=== PATIENT | female | born 1955 | race Two or more races ===

== ENCOUNTER 2017-09-05 06:41 | Day surgery (SDC) | payer OTHER ==
[2017-09-05] VITALS (10 sets, daily range): BP systolic 113–186; BP diastolic 55–68; PULSE 94–102; RESP 14–24; Ht 160 cm; Wt 89.5 kg
[~2017-09-05] VITALS: Ht 160 cm; Wt 89.5 kg
[2017-09-05] MEDS ORDERED: CEFAZOLIN 1 GM INJ ONE (07:26)
[2017-09-05] MEDS ORDERED: MIDAZOLAM 1 MG/ML 2 ML INJ ONE (07:26)
[2017-09-05] MEDS ORDERED: PROPOFOL 20 ML ONE (07:26)
[2017-09-05] MEDS ORDERED: ROCURONIUM 50 MG INJ ONE ×2 (07:26→11:01)
[2017-09-05] MEDS ORDERED: ROPIVACAINE 0.5 % 30 ML VIAL ONE (07:28)
[2017-09-05] MEDS ORDERED: POLYMYXIN/BACITRACIN 1L IRRIG IRR ONE (07:30)
--- NOTE | 2017-09-05 07:35 | HPN ---
Date/Time of Note Date/Time of Note DATE: 09/05/17 TIME: 07:35 Interval H&P Admission Note Pt. seen H&P reviewed: No system changes SHARAD BRAVO Sep 05, 2017 07:35
[2017-09-05] MEDS ORDERED: VANCOMYCIN 1 GM (PMX) 250 ML ONE (08:01)
[2017-09-05] MEDS ORDERED: LABETALOL HCL 20MG INJ ONE ×2 (08:09→11:01)
[2017-09-05] MEDS ORDERED: hydrALAzine 20 MG INJ ONE (09:23)
[2017-09-05] MEDS ORDERED: ONDANSETRON 4 MG INJ ONE (09:24)
[2017-09-05] MEDS ORDERED: METOCLOPRAMIDE 10 MG INJ ONE (09:24)
[2017-09-05] MEDS ORDERED: KETOROLAC 30 MG INJ ONE (09:24)
[2017-09-05] MEDS ORDERED: DEXAMETHASONE 4 MG/ML 1 ML INJ ONE (09:28)
[2017-09-05] MEDS ORDERED: ACETAMINOPHEN 1000MG/100ML IV 100 ML ONE (09:29)
[2017-09-05] MEDS ORDERED: ONDANSETRON 4 MG INJ IV PRN (10:00)
[2017-09-05] MEDS ORDERED: LABETALOL HCL 20MG INJ IV PRN (10:00)
[2017-09-05] MEDS ORDERED: HYDROmorphONE (0.2 MG/ML) 10ML SYG IV PRN ×3 (10:00)
[2017-09-05] MEDS ORDERED: EPHEDrine SULFATE 50 MG/5 ML SYG IV PRN (10:00)
[2017-09-05] MEDS ORDERED: FENTAnyl 50 MCG/ML VIAL IV PRN ×3 (10:00)
[2017-09-05] MEDS ORDERED: hydrALAzine 20 MG INJ IV PRN (10:00)
[2017-09-05] MEDS ORDERED: MEPERIDINE 25 MG INJ IV PRN (10:00)
[2017-09-05] MEDS ORDERED: DIPHENHYDRAMINE 50 MG INJ IV PRN (10:00)
[2017-09-05] MEDS ORDERED: METOCLOPRAMIDE 10 MG INJ IV PRN (10:00)
[2017-09-05] MEDS ORDERED: VANCOMYCIN 1 GM INJ ONE (11:32)
--- NOTE | 2017-09-05 11:55 | RADRPT ---
PROCEDURE: Intraoperative imaging of the right elbow with fluoroscopy. CLINICAL INDICATION: Right elbow pain. Intraoperative. TECHNIQUE: Images of the right elbow were obtained in the operating room with an image intensifier . No radiologist was in attendance. Fluoroscopy time is 19 seconds and 11 images were obtained. COMPARISON: No prior study is available for comparison. FINDINGS: Images demonstrate open reduction and internal fixation of a severely comminuted fracture of the pro ximal right ulna with multiple plates and screws. There is also replacement of the radial head with a metallic prosthesis. IMPRESSION: 1. Intraoperative imaging of the right elbow. RPTAT: QQ .Regino Das MD, MD Date Time Electronically viewed and signed by .Regino Das MD, on 09/05/2017 11:55 .R/
[2017-09-05] MEDS ORDERED: SUGAMMADEX SODIUM 200 MG/2 ML VIAL IV ONE (11:57)
--- NOTE | 2017-09-05 12:08 | OPPN ---
Date/Time of Note Date/Time of Note DATE: 09/05/17 TIME: 12:07 Operative Report Preoperative Diagnosis right elbow fracture dislocation, coronoid fracture, olecranon fracture, radial head fracture, lateral collateral ligament rupture, ulnar nerve compression Postoperative Diagnosis right elbow fracture dislocation, coronoid fracture, olecranon fracture, radial head fracture, lateral collateral ligament rupture, ulnar nerve compression Operation/Procedure Performed open treatment of right elbow fracture dislocation, ORIF coronoid fracture, olecranon fracture, radial head replacement, repair of lateral collateral ligament rupture, decompression of ulnar nerve at the elbow Surgeon see signature line family law legal assistant none Anesthesia: general Estimated blood loss: 0 - 10 ml's Transfusion Required none Specimen none Grafts/Implants none Complications none SHARAD BRAVO Sep 05, 2017 12:08
[2017-09-05] MEDS ORDERED: LACTATED RINGER'S 1,000 ML IV* SCH (13:30)
--- NOTE | 2017-09-05 21:27 | OPR ---
DATE OF OPERATION: 09/05/2017 SURGEON: Jeremias Cope MD ANESTHESIA: General plus peripheral nerve block. PREOPERATIVE DIAGNOSES: 1. Right elbow fracture dislocation. 2. Right intra-articular olecranon fracture. 3. Right elbow coronoid fracture. 4. Right elbow radial head fracture. 5. Rupture of the right elbow lateral collateral ligament. 6. Rupture of the right elbow medial collateral ligament. 7. Right cubital tunnel syndrome, compression of the ulnar nerve at the elbow. POSTOPERATIVE DIAGNOSES: 1. Right elbow fracture dislocation. 2. Right intra-articular olecranon fracture. 3. Right elbow coronoid fracture. 4. Right elbow radial head fracture. 5. Rupture of the right elbow lateral collateral ligament. 6. Rupture of the right elbow medial collateral ligament. 7. Right cubital tunnel syndrome, compression of the ulnar nerve at the elbow. OPERATION PERFORMED: 1. Open treatment of right elbow fracture dislocation. 2. Open reduction, internal fixation of right intra-articular olecranon fracture. 3. Open reduction, internal fixation of right elbow coronoid fracture. 4. Right elbow radial head replacement. 5. Primary repair of right elbow lateral collateral ligament. 6. Primary repair of right elbow medial collateral ligament. 7. Right ulnar nerve decompression at the elbow. OPERATIVE FINDINGS: 1. Fracture dislocation of the right elbow with multiple fragments and multifragmentary radial head requiring radial head replacement. 2. Compression of the ulnar nerve at Eckert ligament. 3. Instability of the elbow after bony fixation requiring ligament fixation medially and laterally. INDICATION: This is a 61-year-old female, who saw me in the office several weeks after an injury to the right elbow. She was diagnosed with a fracture dislocation of the elbow and also had symptoms of cubital tunnel syndrome. We discussed the options and the patient elected to proceed with surgical intervention understanding the risks and benefits. OPERATIVE PROCEDURE: The patient was seen in the preoperative area and all further questions were answered. Again, she gave informed consent understanding risks and benefits. She was taken to the operative suite and placed in supine position. A peripheral nerve block was performed at my request for perioperative anesthesia as well as postoperative pain relief. The patient was placed under general anesthesia and tourniquet placed on the right upper extremity. Ancef 2 g IV given as well as vancomycin 1 g IV. Right upper extremity was prepped with ChloraPrep stick and draped in usual sterile fashion. An Esmarch bandage was used to exsanguinate the extremity and tourniquet inflated to 250 mmHg. A longitudinal incision over the posterior elbow was utilized with sharp dissection and carried down through skin and subcutaneous tissue. Attention was first turned to the olecranon fracture and the distal triceps as well as the interval between the ECU and FCU tendons was utilized with Bovie electrocautery to identify the fracture fragments of the olecranon. After the fracture fragments of the olecranon were identified and dissected out, attention was turned to identify the injury at the radial head. An incision in the fascia overlying the extensor mass was utilized with a knife through the fascia and just below the fascia of the radial head was evident. I was able to bluntly dissect and identify the radial neck and head fracture with multiple fragments. The radial head was found to be nonsalvageable and decision was made to perform a radial head replacement. I debrided the radial head fracture site and prepared the radial shaft for placement of the radial head replacement. Prior to placing the radial head replacement, I wanted to evaluate the coronoid fracture. I was able to visualize the coronoid fracture through the posterior olecranon fracture, but I was unable to mobilize the fragment due to the subacute nature of the injury. There was also significant pull of the anterior elbow capsule. I turned my attention to the medial elbow and first elected to perform an ulnar nerve decompression. The ulnar nerve was identified posterior to the medial epicondyle and the sheath of Eckert ligament was incised with a knife. The ulnar nerve was decompressed deep to Eckert's ligament as well as distally through the entrance to the FCU at the FCU fascia and throughout its course within the FCU musculature. The nerve was also decompressed proximally past the intermuscular septum. After the ulnar nerve was completely decompressed, I turned my attention to the coronoid fracture. The flexor pronator mass had been injured in the trauma, and I was able to elevate this and visualize the coronoid fracture. The coronoid fracture was reduced and was fixed with plate and screw fixation using AccuMed 2.0 mm screws and plate. After the cord fracture had adequate fixation, I turned my attention to the olecranon fracture and used an AccuMed olecranon plate with distal extension in order to span the fracture. Cortical and locking screws were placed within the olecranon. I then came back to the coronoid fracture and placed additional fixation to secure the coronoid fracture. An AccuMed 2.0 mm plate was also used for this additional fixation. There was also a fracture on the lateral aspect of the proximal ulna, which was secured with a 2 mm AccuMed hand plate. The olecranon was found to be adequately stabilized, and attention was turned to the radial head. The size of the radial head was found to be size 8 with a plus 2 by 22 mm head. This was placed into the shaft appropriate and the radial capitellar joint was reduced. There was no overstuffing of the joint and the elbow glided reasonably well, but there was persistent instability and subluxation. A DePuy Mitek mini suture anchor was placed into the lateral epicondyle to repair the lateral collateral ligament, which had been avulsed. After the suture anchor was placed, the lateral collateral ligament was captured with suture and was secured. This provided additional stability. There was still some persistent instability, and attention was turned medially and the medial collateral ligament was repaired on both its proximal and distal aspects and DePuy Mitek suture anchor was used distally to secure a portion of the ligament that had avulsed. The medial collateral ligament was repaired primarily with 2-0 Ethibond suture and the DePuy Mitek suture anchor. The elbow was ranged through motion and found to have reasonable motion without crepitus. Range of motion was from 10 to 120 degrees of flexion without crepitus or instability. The wounds were copiously irrigated and a defect site within the proximal ulna was filled with Mary bone graft. Vancomycin was placed in the wound and the fascial layers were closed with 2-0 Monocryl. Deep dermal layer was closed with 2-0 Monocryl, and skin closed with noelle. Xeroform placed over the wound followed by sterile gauze, Webril, and a long arm splint with the elbow at 90 degrees in neutral rotation. Tourniquet time was a total of 135 minutes. Patient was awakened from anesthesia and taken to the postoperative suite in stable condition. Tolerated the procedure well without complication. SPECIMENS: None. ESTIMATED BLOOD LOSS: 5 cc. COUNTS: Sponge, instrument, and needle counts correct. TOURNIQUET TIME: 135 minutes. CONDITION AT DISCHARGE: Stable. Dictated By: Jeremias Cope MD /eddie/annie /Document#: [id number] MTDD
== END 2017-09-05 14:05 | disposition home or self-care (01) ==
LOC: SDS 06:41
PROVIDERS: ATTEND Orthopaedic Surgery Hand Surgery
DX: S52.031D Displaced fracture of olecranon process with intraarticular extension of right ulna, subsequent encounter for closed fracture with routine healing (principal); S52.121D Displaced fracture of head of right radius, subsequent encounter for closed fracture with routine healing; S53.21XD Traumatic rupture of right radial collateral ligament, subsequent encounter; S53.441D Ulnar collateral ligament sprain of right elbow, subsequent encounter; X58.XXXD Exposure to other specified factors, subsequent encounter; S52.041D Displaced fracture of coronoid process of right ulna, subsequent encounter for closed fracture with routine healing; G56.21 Lesion of ulnar nerve, right upper limb; I10 Essential (primary) hypertension
CPT/HCPCS: 24366; 24685; 24999; 73080; J0131; J0360; J0690; J1100; J1885; J2175; J2250; J2405; J2765; J2795; J3010; J3370; Z7512; Z7610